=== PATIENT | female | born 1945 | race Caucasian/White ===

== ENCOUNTER 2017-01-26 09:10 | Day surgery (SDC) | payer MEDICARE, OTHER ==
[~2017-01-26] VITALS: Ht 124.5 cm; Wt 113.6 kg
[2017-01-26] MEDS ORDERED: OMEPRAZOLE20 M1 PO (10:03)
[2017-01-26] MEDS ORDERED: CLARITIN 10 MG10 MG PO (10:04)
[2017-01-26] MEDS ORDERED: XOPENEX HFA15 GM INH (10:04)
[2017-01-26] MEDS ORDERED: SALINE NASAL SP45 ML NS (10:06)
[2017-01-26 10:09] VITALS: BP 149/87; Ht 124.5 cm; Wt 113.6 kg
[2017-01-26 10:21] LABS: CALC OSMOLALITY 286 mosm/kg (275-300); CARBON DIOXIDE 33.5 mmol/L (21.0-32.0); CHLORIDE - SERUM 105 mmol/L (98-107); CREATININE - SERUM 0.3 mg/dL (0.6-1.3); GLUCOSE 99 mg/dL (74-106); POTASSIUM - SERUM 3.9 mmol/L (3.5-5.1); SODIUM 144 mmol/L (136-145); UREA NITROGEN 12 mg/dL (7-18); eGFR NON AFRICAN AMERICAN > 90 mL/min (90-120)
[2017-01-26 10:58] LABS: BASOPHILS 0.4 % (0.0-2.0); EOSINOPHILS 1.5 % (0-7); HEMATOCRIT 47.8 % (36.0-48.0); HEMOGLOBIN 15.1 g/dL (12-16); IMMATURE GRANULOCYTES 0.2 % (0-5); LYMPHOCYTES 22.7 % (15-50); MCH 30.9 pg (26.0-34.0); MCHC 31.6 g/dL (31.0-37.0); MCV 97.8 fL (80.0-100.0); MEAN PLATELET VOLUME 10.1 fL (7.4-10.4); MONOCYTES 5.4 % (2-11); NEUTROPHILS 69.8 % (40-80); PLATELET COUNT 209 10x3/uL (130-400); RBC 4.89 10x6/uL (4.00-5.40); RDW 15.6 % (11.5-14.5); WBC 4.7 10x3/uL (4.8-10.8)
--- NOTE | 2017-01-26 13:11 | NUR ---
1250 BACK FROM EGD RESP EVEN AND NONLABORED IN UPRIGHT POSITION HAVING SOME HIP PAIN BUT DOES NOT WANT ANY PAIN MEDS.
--- NOTE | 2017-01-26 13:37 | NUR ---
1320 V/S TAKEN TOLERATED FULL LIQUIDS AND VOIDED EARLIER ON BADPAN.
--- NOTE | 2017-01-26 14:04 | NUR ---
1350 REFUSED B/P ASSISTED UP IN PATIENTS MOTORIZED WHEELCHAIR, RESP EVEN AND NONLABORED AWAKE AND TALKING IV DCD CATHETER INTACT. GAVE INFORMATION ON MONTANO'S ESOPHAGUS AND DISCHARGE INSTRUCTIONS. TOLD TO BE SURE TAKES HER PROTINIC PUMP INHIBITOR AND ALSO REVIEWED THAT PROTONIX OR NEXIUM ARE ALSO ONES. TOLD TO BE SURE TOOK HER OMEPRAXOLE DAILY. KATIUSKA UNDERSTAND.
--- NOTE | 2017-01-26 14:08 | NUR ---
1355 DISCHARGED TO HOME PATIENT IN OWN MOTORIZED WHEELCHAIR.
--- NOTE | 2017-01-29 18:21 | PRO ---
PATIENT:MEGHAN PAYNE MEDICAL RECORD: [id number] : 49 LOCATION:D.OPS ADMISSION DATE: 01/26/17 PROCEDURE PERFORMED BY: GREER HARVEY MD DATE OF PROCEDURE: 01/26/2017 FLASH DEVELOPER: Greer Harvey MD. PROCEDURE: EGD with biopsy times 3. INDICATION: The patient is a 71-year-old old white female with history of morbid obesity, history ____ once and paraplegia, who is basically here for evaluation of chronic reflux disease and her known history of Rogers esophagus followed in the past at [facility]. She apparently has had both upper and lower endoscopies performed there that have been unremarkable other than Rogers esophagus and some diverticular disease. She had a recent scant rectal bleeding back in April 2016 after being treated conservatively and she has no further bleeding afterwards. She had a CT abdomen and pelvis done, which revealed sigmoid diverticulosis, but otherwise normal. She is on omeprazole 40 mg daily for her reflux disease. She has chronic sinus drainage complaint quite a bit of that. She is now for EGD. PREMEDICATION: Taper anesthesia. INSTRUMENT: Olympus video gastroscope. FINDINGS: The endoscope was passed through the oropharynx to the second portion of duodenum without difficulty. The esophagus was remarkable for extensive Rogers esophagus of about 10 cm starting at 27 cm and going down to the GE junction at 37 cm from the incisors. There were no other mucosal abnormalities such as active esophagitis, nodularity, et cetera present. It would surprise me if she had some abnormal motility there. I took some biopsies in her lower esophagus at roughly 35 cm, and also in her upper esophagus at around 30 cm from the incisors. The stomach was entered and was normal other than scant diffuse gastritis and 1 small AVM in the fundus of the stomach, which was not bleeding. The duodenum was entered and was completely normal. I took some biopsies from the stomach to rule out H. pylori by means of histology. The patient tolerated the procedure well without any complications. IMPRESSION: 1. A 10 cm of extensive Rogers esophagus present now, status post 2 levels of esophageal biopsy, rule out dysplasia. 2. Probable abnormal motility of the esophagus. 3. 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 4. Scant gastritis. 5. Otherwise, normal esophagogastroduodenoscopy. RECOMMENDATIONS: 1. Follow up biopsy results of the proximal esophagus, distal esophagus, and antrum of the stomach. 2. Continue Protonix indefinitely. 3. Follow up in clinic as needed. 4. Surveillance EGD in a couple of years. However, I should note that this lady is a very high risk patient. We had to keep her almost totally upright, keep her O2 saturation up. She ____ to say that her risks outweigh the benefits PROCEDURE NOTE [id number] MEGHAN PAYNE of any future surveillance endoscopies. I will discuss this with her and let her decide if she wants to take that type of risk. TRANSINT:[id number] Voice Confirmation ID: [id number] DOCUMENT ID: [id number] GREER HARVEY MD at 1821 CC: WYATT BETANCOURT MD [id number] DICTATION DATE: 01/26/17 1246 EQUIPMENT MAINTENANCE SUPERVISOR: 01/27/[address] [facility] 01/26/17 [id number] [place] [address]
== END 2017-01-26 13:55 | disposition home or self-care (01) ==
LOC: D.OPS 09:10
PROVIDERS: Anesthesiology
DX: K22.70 Barrett's esophagus without dysplasia (principal); Q27.33 Arteriovenous malformation of digestive system vessel; K29.50 Unspecified chronic gastritis without bleeding; K21.9 Gastro-esophageal reflux disease without esophagitis; G82.20 Paraplegia, unspecified; E66.01 Morbid (severe) obesity due to excess calories; Z68.45 Body mass index [BMI] 70 or greater, adult

== ENCOUNTER → 2017-10-03 13:57 | Outpatient (CLI) | payer MEDICARE, OTHER ==
[2017-01-26 10:09] VITALS: BMI 73.4
[~2017-10-03 13:57] MED LIST: CLARITIN 10 MG10 MG PO; OMEPRAZOLE20 M1 PO; SALINE NASAL SP45 ML NS; XOPENEX HFA15 GM INH
== END | disposition home or self-care (01) ==
LOC: D.MAMMO 11:15
DX: Z12.31 Encounter for screening mammogram for malignant neoplasm of breast (principal)

== ENCOUNTER → 2017-11-08 17:39 | Outpatient (CLI) | payer MEDICARE, OTHER ==
[2017-01-26 10:09] VITALS: BMI 73.4
== END | disposition home or self-care (01) ==
LOC: D.MAMMO 13:30
DX: N60.02 Solitary cyst of left breast (principal)

== ENCOUNTER 2019-09-02 08:00 | Outpatient (CLI) | payer MEDICARE, OTHER ==
[2017-01-26 10:09] VITALS: BMI 73.4
== END 2019-09-02 23:59 | disposition home or self-care (01) ==
LOC: D.MAMMO 08:00
PROVIDERS: ATTEND Emergency Medicine
DX: Z12.31 Encounter for screening mammogram for malignant neoplasm of breast (principal)